=== PATIENT | female | born 1955 ===

== ENCOUNTER 2023-05-06 08:37 | Outpatient (CLI) | payer OTHER | END 2023-05-06 13:40 | disposition home or self-care (01) | LOC: LAB 08:37 | PROVIDERS: ATTEND Orthopaedic Surgery | DX: E55.9 Vitamin D deficiency, unspecified (principal); M85.9 Disorder of bone density and structure, unspecified; E56.1 Deficiency of vitamin K ==

== ENCOUNTER 2023-05-06 09:18 | Outpatient (CLI) | payer OTHER | END 2023-05-06 09:29 | disposition home or self-care (01) | LOC: RAD 09:18 | PROVIDERS: ATTEND Orthopaedic Surgery | DX: M25.551 Pain in right hip (principal); M54.50 Low back pain, unspecified; M53.3 Sacrococcygeal disorders, not elsewhere classified ==